=== PATIENT | male | born 1980 | race African-American/Black ===

== ENCOUNTER 2018-02-03 18:58 | Emergency (ER) | payer BC ==
--- NOTE | 2018-02-03 20:35 | EDM.PDOC ---
ED HPI GENERAL MEDICAL PROBLEM - General Chief Complaint: Neuro Symptoms/Deficits Stated Complaint: NUMBNESS HANDS/CHEST PAIN Time Seen by Provider: 02/03/18 20:10 Source of Information: Reports: Patient History Limitations: Reports: No Limitations - History of Present Illness INITIAL COMMENTS - FREE TEXT/NARRATIVE: HISTORY AND PHYSICAL: History of present illness: Patient is a 37-year-old male who presents to the emergency room today with complaints of tingling to his hands and face, nasal and chest congestion, chills and feeling "generally unwell". He states that the symptoms worse last night, he reports he had an episode where he was "unable to move it" for approximately 15 minutes where at their peak. He was unable to drive to a hospital for evaluation as he was on a work location outside of [facility]. States his symptoms are mild but still present. He denies any chest pain, shortness of breath, abdominal pain, nausea, vomiting , diarrhea or constipation. He has not tried any [id number] products. Denies any alcohol or drug abuse. Review of systems: As per history of present illness and below otherwise all systems reviewed and negative. Past medical history: As per history of present illness and as reviewed below otherwise noncontributory. Surgical history: As per history of present illness and as reviewed below otherwise noncontributory. Social history: No reported history of drug or alcohol abuse. Family history: As per history of present illness and as reviewed below otherwise noncontributory. Physical exam: General: Well-developed and well-nourished 37-year-old -[place] male. Alert and oriented. Nontoxic appearing and in no acute distress. HEENT: Atraumatic, normocephalic, pupils equal and reactive bilaterally, negative for conjunctival pallor or scleral icterus, mucous membranes moist, throat clear, neck supple, nontender, trachea midline. No drooling or trismus noted. No meningeal signs Lungs: Clear to auscultation, breath sounds equal bilaterally, chest nontender. Heart: S1S2, regular rate and rhythm without overt murmur Abdomen: Soft, nondistended, nontender. Negative for masses or hepatosplenomegaly. Negative for costovertebral tenderness. Pelvis: Stable nontender. Genitourinary: Deferred. Rectal: Deferred. Skin: Intact, warm, dry. No lesions or rashes noted. Extremities: Atraumatic, negative for cords or calf pain. Neurovascular unremarkable. Neuro: Awake, alert, oriented. Cranial nerves II through XII unremarkable. Cerebellum unremarkable. Motor and sensory unremarkable throughout. Exam nonfocal. Notes: Physical examination is unremarkable. I will do some routine lab work this time along with a head CT and CXR, he is agreeable. CBC and CMP normal. Head CT is normal. CXR shows no evidence of pneumonia, appears to have bronchitis. Due to the patient's history of smoking and symptoms and will give a Z-Sarmad and Medrol Dosepak. Encouraged him to stop smoking. Use [id number] Mucinex as needed. A caregiver in the next 1-2 days. Patient voices understanding and is agreeable to plan of care. He denies any further questions at this time. Diagnostics: CBC, CMP, CXR, Head CT Therapeutics: [] Impression: Paresthesia, resolved Bronchitis Elevated liver enzymes Encounter for Medical Screening Plan: 1. Please take over the counter Mucinex 2. Take your antibiotic as directed. Medrol dosepak (steriod) to help decrease the inflammation. 3. Stop smoking. Avoid any alcohol use. Your AST/ALT enzymes were elevated ( liver enzymes), please schedule to follow up with your primary care provider in 1-2 weeks to have this re-evaluated. 4. Increase your oral fluids to prevent dehydration. Small frequent meals throughout the day. 5. Follow up with your Primary Care Provider in the next 1-2 days. Return to the ED as needed as discussed. Definitive disposition and diagnosis as appropriate pending reevaluation and review of above. Duration: Day(s): Location: Reports: Generalized - Related Data Allergies Allergy/AdvReac Type Severity Reaction Status Date / Time No Known Allergies Allergy Verified 02/03/18 20:00 Home Meds: Home Meds . [No Known Home Meds] 02/03/18 [History] Past Medical History - Past Health History Medical/Surgical History: Denies Medical/Surgical History - Infectious Disease History Infectious Disease History: Reports: Chicken Pox Social & Family History - Tobacco Use Smoking Status *Q: Current Every Day Smoker Years of Tobacco use: 7 Packs/Tins Daily: 0.3 - Caffeine Use Caffeine Use: Reports: Energy Drinks - Alcohol Use Number of Drinks Per Day: 1 - Recreational Drug Use Recreational Drug Use: No ED ROS GENERAL - Review of Systems Review Of Systems: ROS reveals no pertinent complaints other than HPI. ED EXAM, NEURO - Physical Exam Exam: See Below (See dictation) Course - Vital Signs Last Recorded V/S: Last Vital Signs Temp 98.4 F 02/03/18 19:58 Pulse 81 02/03/18 19:58 Resp 12 02/03/18 19:58 BP 123/69 02/03/18 19:58 Pulse Ox 94 L 02/03/18 19:58 - Orders/Labs/Meds Orders: Active Orders 24 hr Category Date Time Status Chest 2V [CR] Stat Exams 02/03/18 20:35 Taken Head wo Cont [CT] Stat Exams 02/03/18 20:35 Taken Labs: Laboratory Tests 02/03/18 02/03/18 Range/Units 20:42 20:42 WBC 4.39 (4.0-11.0) K/uL RBC 4.54 (4.50-5.90) M/uL Hgb 13.6 (13.0-17.0) g/dL Hct 40.2 (38.0-50.0) % MCV 88.5 (80.0-98.0) fL MCH 30.0 (27.0-32.0) pg MCHC 33.8 (31.0-37.0) g/dL RDW Std Deviation 40.2 (28.0-62.0) fl RDW Coeff of Silva 13 (11.0-15.0) % Plt Count 208 (150-400) K/uL MPV 9.50 (7.40-12.00) fL Neut % (Auto) 50.4 (48.0-80.0) % Lymph % (Auto) 36.4 (16.0-40.0) % [place] % (Auto) 13.0 (0.0-15.0) % Eos % (Auto) 0.0 (0.0-7.0) % Baso % (Auto) 0.2 (0.0-1.5) % Neut # (Auto) 2.2 (1.4-5.7) K/uL Lymph # (Auto) 1.6 (0.6-2.4) K/uL [place] # (Auto) 0.6 (0.0-0.8) K/uL Eos # (Auto) 0.0 (0.0-0.7) K/uL Baso # (Auto) 0.0 (0.0-0.1) K/uL Nucleated RBC % 0.0 /100WBC Nucleated RBCs # 0 K/uL Sodium 138 (136-148) mmol/L Potassium 4.0 (3.5-5.1) mmol/L Chloride 102 (98-107) mmol/L Carbon Dioxide 24.7 (21.0-32.0) mmol/L BUN 11 (7.0-18.0) mg/dL Creatinine 1.6 H (0.8-1.3) mg/dL Est Cr Clr Drug Dosing 68.71 mL/min Estimated GFR (MDRD) 58.9 ml/min Glucose 95 (74-106) mg/dL Calcium 9.1 (8.5-10.1) mg/dL Total Bilirubin 1.0 (0.2-1.0) mg/dL AST 63 H (15-37) IU/L ALT 81 H (14-63) IU/L Alkaline Phosphatase 91 (46-116) U/L Total Protein 8.3 H (6.4-8.2) g/dL Albumin 4.1 (3.4-5.0) g/dL Globulin 4.2 H (2.0-3.5) g/dL Albumin/Globulin Ratio 1.0 L (1.3-2.8) Departure - Departure Time of Disposition: 21:16 Disposition: Home, Self-Care 01 Clinical Impression: Bronchitis, Encounter for medical screening examination, Paresthesia, Elevated liver enzymes - Discharge Information Instructions: Paresthesia, Acute Bronchitis, Adult, [id number] Referrals: PCP,None [Primary Care Provider] - Forms: ED Department Discharge Additional Instructions: The following information is given to patients seen in the emergency department who are being discharged to home. This information is to outline your options for follow-up care. We provide all patients seen in our emergency department with a follow-up referral. The need for follow-up, as well as the timing and circumstances, are variable depending upon the specifics of your emergency department visit. If you don't have a primary care physician on staff, we will provide you with a referral. We always advise you to contact your personal physician following an emergency department visit to inform them of the circumstance of the visit and for follow-up with them and/or the need for any referrals to a consulting specialist. The emergency department will also refer you to a specialist when appropriate. This referral assures that you have the opportunity for follow-up care with a specialist. All of these measure are taken in an effort to provide you with optimal care, which includes your follow-up. Under all circumstances we always encourage you to contact your private physician who remains a resource for coordinating your care. When calling for follow-up care, please make the office aware that this follow-up is from your recent emergency room visit. If for any reason you are refused follow-up, please contact the [facility] Emergency Department at and asked to speak to the emergency department charge nurse. [facility] [address] [place] [phone] 1. Please take over the counter Mucinex 2. Take your antibiotic as directed. Medrol dosepak (steriod) to help decrease the inflammation. 3. Stop smoking. Avoid any alcohol use. Your AST/ALT enzymes were elevated ( liver enzymes), please schedule to follow up with your primary care provider in 1-2 weeks to have this re-evaluated. 4. Increase your oral fluids to prevent dehydration. Small frequent meals throughout the day. 5. Follow up with your Primary Care Provider in the next 1-2 days. Return to the ED as needed as discussed. - My Orders Last 24 Hours: My Active Orders 02/03/18 20:35 Chest 2V [CR] Stat Head wo Cont [CT] Stat - Assessment/Plan Last 24 Hours: My Active Orders 02/03/18 20:35 Chest 2V [CR] Stat Head wo Cont [CT] Stat
--- NOTE | 2018-02-04 10:05 | CT ---
EXAM DATE: 02/03/18 PATIENT'S AGE: 37 Patient: RODOLFO LOPES Facility: [place], [place] Site . Site : 1980 Study: CT Head [id number]/11/2018 8:55:07 PM Ordering Physician: Doctor Cervantes Final Report: INDICATION: Headache. TECHNIQUE: Noncontrast CT of the brain was performed with images acquired from skull base to vertex. COMPARISON: None available. FINDINGS: There is no acute intracranial hemorrhage. Ventricles are of normal size and morphology. No mass effect or midline shift is present. The castillo-white matter differentiation is normal. The visualized portions of the orbits are normal. The visualized portions of the mastoids are normal. The visualized portions of the paranasal sinuses are normal. No fractures are identified. IMPRESSION: No acute intracranial abnormality. Please note that all CT scans at this facility use dose modulation, iterative reconstruction, and/or weight-based dosing when appropriate to reduce radiation dose to as low as reasonably achievable. Dictated by Ferny Zafar MD @ Feb 03 2018 8:59PM (Electronic Signature) Report Signed by Proxy. [facility]
--- NOTE | 2018-02-04 10:06 | CR ---
EXAM DATE: 02/03/18 PATIENT'S AGE: 37 Patient: RODOLFO LOPES Facility: [place], [place] Site . Site : 1980 Study: XRay Chest [id number]/11/2018 8:58:13 PM Ordering Physician: Doctor Cervantes Final Report: INDICATION: Cough TECHNIQUE: Two view chest. FINDINGS: Small punctate granuloma left midlung on the PA view. The lungs are otherwise clear. The heart, mediastinum and pulmonary vessels are of normal size. There is no evidence of pleural disease. IMPRESSION: Negative chest. Dictated by Shan Nielson MD @ Feb 03 2018 9:19PM (Electronic Signature) Report Signed by Proxy. [facility]
== END 2018-02-03 21:25 | disposition home or self-care (01) ==
LOC: MW.ED 18:58
DX: J40 Bronchitis, not specified as acute or chronic (principal); R20.2 Paresthesia of skin; R94.5 Abnormal results of liver function studies; F17.210 Nicotine dependence, cigarettes, uncomplicated
CPT/HCPCS: 36415; 70450; 70450-26; 71046; 71046-26; 80053; 85025; 99284-25

== ENCOUNTER 2024-09-17 07:58 | Emergency (ER) | payer BC ==
[2024-09-17] MEDS: Proparacaine 0.5% Ophth Soln 15 ML Bottle EYEBOTH ONE (08:19)
[2024-09-17] MEDS: Fluorescein 1 MG Ophth Strip EYEBOTH ONE (08:19)
[2024-09-17] MEDS: Sodium Chloride 0.9% 1,000 ML IRR ONE (08:19)
[2024-09-17] MEDS: Erythromycin Base 0.5% Ophth Oint 1 GM Tube EYELF ONE (08:26)
== END 2024-09-17 09:15 | disposition home or self-care (01) ==
LOC: MW.ED 07:58
DX: S05.02XA Injury of conjunctiva and corneal abrasion without foreign body, left eye, initial encounter (principal); Z77.098 Contact with and (suspected) exposure to other hazardous, chiefly nonmedicinal, chemicals; X58.XXXA Exposure to other specified factors, initial encounter; Y99.0 Civilian activity done for income or pay
CPT/HCPCS: 99283; A9270; J7030; J3490